=== PATIENT | male | born 1950 | race Caucasian/White ===

== ENCOUNTER 2018-02-08 10:11 | Outpatient (CLI) | payer MEDICARE | END 2018-02-08 10:12 | disposition home or self-care (01) | LOC: CTENTCT 10:11 | PROVIDERS: ATTEND Otolaryngology Plastic Surgery within the Head & Neck | DX: J32.8 Other chronic sinusitis (principal) | CPT/HCPCS: 70486 ==

== ENCOUNTER 2019-12-25 08:31 | Outpatient (CLI) | payer MEDICARE, OTHER ==
--- NOTE | 2019-12-25 09:51 | CT ---
EXAM: CT calcium score HISTORY: Hypercholesterolemia and hypertension COMPARISON: None TECHNIQUE: Multiple contiguous axial images were obtained a CT of the heart without contrast. FINDINGS: The CT images show no suspicious pulmonary nodules. Degenerative changes are seen in the s pine. No hilar or mediastinal lymphadenopathy are seen. The patient's total Agatston calcium score is 99. IMPRESSION: Mild coronary atherosclerosis is present. There is likely a mild or minimal coronary sten osis. A mild risk of having coronary artery disease exists
== END 2019-12-25 08:32 | disposition home or self-care (01) ==
LOC: BICCT 08:31
PROVIDERS: ATTEND Family Medicine
DX: I10 Essential (primary) hypertension (principal); I25.10 Atherosclerotic heart disease of native coronary artery without angina pectoris
CPT/HCPCS: 75571

== ENCOUNTER 2019-12-27 13:33 | Outpatient (CLI) | payer MEDICARE | END 2019-12-27 13:34 | disposition home or self-care (01) | LOC: ULT 13:33 | PROVIDERS: ATTEND Family Medicine | DX: I10 Essential (primary) hypertension (principal); I35.1 Nonrheumatic aortic (valve) insufficiency | CPT/HCPCS: 93306 ==

== ENCOUNTER 2020-01-16 07:44 | Outpatient (CLI) | payer MEDICARE, OTHER ==
[2020-01-16 11:39] LABS: #Basophils 0.1 thou/uL (0.0-0.2); #Eosinphils 0.2 thou/uL (0.0-0.7); #Lymphocytes 2.2 thou/uL (1.20-3.40); #Monocytes 0.7 thou/uL (0.11-0.59); #Neutrophils 4.6 thou/uL (1.40-6.50); %Basophils 0.8 % (0.0-1.0); %Eosinophils 2.9 % (0.0-10.0); %Lymphocytes 28.2 % (21.0-51.0); %Monocytes 9.4 % (0.0-10.0); %Neutrophils 58.7 % (42.0-75.0); Hemoglobin 15.6 g/dL (14.0-18.0); Mean Corpuscular HGB CONC 35.2 g/dL (32.0-36.0); Mean Corpuscular Volume 96.5 fL (78.0-98.0); Mean Platelet Volume 6.9 fL (7.4-10.4); Platelet Count 203 thou/uL (130-400); RBC Distribution Width 11.5 % (11.5-14.5); Red Blood Cell (RBC) Count 4.59 mill/uL (4.70-6.10); White Blood Cell (WBC) Count 7.9 thou/uL (4.8-10.8)
[2020-01-16 11:54] LABS: Bacteria/HPF None Seen HPF (None Seen); Bilirubin Negative (Negative); Blood, Urine Negative (Negative); Clarity Clear (Clear); Glucose, Urine (Dipstick) Normal (Negative); Ketone, Urine Negative (Negative); Leukocyte Negative Leu/uL (Negative); Nitrite Negative (Negative); Protein, Urine (Dipstick) Negative (Neg-Trace); RBC/HPF 0-3 HPF (0-3); Squamous Epithelial 0-3 HPF (0-3); Urobilinogen Normal mg/dL (Less than 2); WBC/HPF 0-3 HPF (0-3)
--- NOTE | 2020-01-16 15:02 | EKG ---
Test Reason : PREOP Blood Pressure : / mmHG Vent. Rate : 067 BPM Atrial Rate : 067 BPM P-R Int : 144 ms QRS Dur : 092 ms QT Int : 404 ms P-R-T Axes : -02 032 068 degrees QTc Int : 426 ms Normal sinus rhythm Normal ECG No previous ECGs available Confirmed by JORGE ROMEO (2) on 01/16/2020 3:01:41 PM Referred By: CHET Confirmed By:JORGE ROMEO
[2020-01-16 17:26] LABS: SARS-CoV-2 MS2 Positive; SARS-CoV-2 N Gene Negative; SARS-CoV-2 S Gene Negative; SARS-CoV-2 by NAA Not Detected (NotDetected); SARS-CoV-2 orf1ab Negative
== END 2020-01-16 07:45 | disposition home or self-care (01) ==
LOC: LABBT 07:44
PROVIDERS: ATTEND Orthopaedic Surgery Hand Surgery
DX: Z01.818 Encounter for other preprocedural examination (principal); M19.041 Primary osteoarthritis, right hand; Z20.828 Contact with and (suspected) exposure to other viral communicable diseases
CPT/HCPCS: 81001; 85025; 93005; U0003; 87635; 93010

== ENCOUNTER 2020-01-19 07:34 | Day surgery (SDC) | payer MEDICARE ==
[2020-01-18 09:47] VITALS: BMI 30.8
[2020-01-19] MEDS ORDERED: Midazolam HCl 2 mg/2 ml Vial ONE (07:38)
[2020-01-19] MEDS ORDERED: Fentanyl 100 MCG/2 ML VIAL ONE ×2 (07:38→08:23)
[2020-01-19] MEDS ORDERED: Bacitracin Zinc Ointment 30 gm TUBE ONE (08:14)
[2020-01-19] MEDS ORDERED: Bupivacaine PF 0.5% 30 ML VIAL ONE (08:14)
[2020-01-19] MEDS ORDERED: Betamet Acet/Betamet Na Ph 30 MG/5 ML VIAL ONE (08:14)
[2020-01-19] MEDS ORDERED: Sodium Chloride 0.9% 10 ML ONE (08:14)
[2020-01-19] MEDS ORDERED: ePHEDrine 50 MG/ML VIAL ONE (09:40)
[2020-01-19] MEDS ORDERED: Lidocaine 1% PF 5 ML VIAL ONE (09:59)
[2020-01-19] MEDS ORDERED: Ondansetron PF 4 MG/2 ML Vial ONE (09:59)
[2020-01-19] MEDS ORDERED: PHENYLEPHRINE-NS 100 MCG/ML 10 ML SYRINGE ONE (09:59)
[2020-01-19] MEDS ORDERED: Bupivacaine HCl 0.5%/Epinephrine 1:200,000/PF 30 ml Vial ONE (09:59)
[2020-01-19] MEDS ORDERED: EPHEDRINE 25 MG/5 ML SYRINGE ONE (09:59)
[2020-01-19] MEDS ORDERED: PROPOFOL 200 MG/20 ML VIAL ONE (09:59)
[2020-01-19] MEDS ORDERED: Ketorolac Tromethamine 30 MG/ML VIAL ONE (09:59)
--- NOTE | 2020-01-19 16:57 | RAD ---
Right hand 2 views intraoperative fluoroscopy HISTORY: Orthopedic surgery. FINDINGS: Intraoperative fluoroscopy was provided for hardware placement and orthopedic surgery as pe rformed by Dr. Barber. Spot fluoroscopic images show metallic wire traversing the first metacarpophalangeal joint and first and second metacarpal bases. Trapezium appears absent. Fluoroscopy time 45 seconds.
--- NOTE | 2020-01-21 09:44 | OP ---
DATE OF PROCEDURE: 01/19/2020 PREOPERATIVE DIAGNOSIS: Right thumb carpometacarpal osteoarthritis with right thumb metacarpophalangeal joint capsular laxity with hyperextension deformity. POSTOPERATIVE DIAGNOSIS: Right thumb carpometacarpal osteoarthritis with right thumb metacarpophalangeal joint capsular laxity with hyperextension deformity with over 40 degrees hyperlaxity of the thumb MP joint. PROCEDURES PERFORMED: 1. Capsulodesis, thumb MP joint, right. 2. Ligament replacement tendon interposition arthroplasty, right thumb carpometacarpal joint. 3. Right thumb complete trapeziectomy with flexor carpi radialis tendon repair for the ligament replacement. 4. C-arm supervision. SPECIMEN REMOVED: Trapezium not sent to the lab. 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 DESCRIPTION OF PROCEDURE: After successful general endotracheal anesthesia, the limb was prepped and draped. The patient also had a block which was so effective. He was completely numb prior to even going back to the operating room. We then outlined a zigzag incision beginning ulnar, distal, and radial, proximal centered on the A1 becca down to the MP joint flexion crease, past the MP joint flexion crease, and then the standard carpometacarpal joint, J-lazy/hockey-stick incision to approach the CMC. We also outlined incision for the flexor carpi radialis harvest. We exsanguinated the limb, inflated the tourniquet to 250 mmHg pressure. The patient then had the incision over of the center A1 becca of the thumb developed first. We identified both the ulnar and radial digital nerves protected them. We made an incision over the A1 becca, retracted the extensor and flexor pollicis longus radially and then we had excellent view of the volar plate as distal and the joint capsule distal from proximal to the sesamoids. We then made a chevron shaped incision and using 4-0 Prolene sutures, advanced [id number] for capsular reconstruction/capsulodesis. Then flexed the digit at the MP joint 30 degrees, pinned it under C-arm supervision in this position and then performed the [id number] capsular repair. We then cut the sutures, and packed the wound with moist normal saline. The wire was cut with only 3 mm protruding from the joint. Then, we made the approach to the volar CMC joint. We carried through skin and subcutaneous tissue with a sharp knife blade and in the medial began dissecting internervous plane between the superficial radial nerve, terminal branches, and the terminal branches of the median cutaneous sensory. Once this was done, we then in between the multiple sleeves of the abductor pollicis longus and extensor pollicis brevis, I did perform a capsulorrhaphy in this patient with a thumb trapezium. The patient then had the joint capsule edges tagged and retracted until we completely the thumb trapezium radial side and now we identified very proximally moving the flexor carpi radialis tendon. Freed this up all along the edges of the palmar and ulnar trapezium. Once this was done, we released the scaphotrapezial joint capsule and remainder of the carpometacarpal joint. The flexor carpi radialis was spared, we placed a corkscrew from [employer] kit in the trapezium to help elevated and remove it. There was no trauma and is here we observed the changes in the scaphoid distal pole trapezium, chondral surface. We then saw over 85% chondral loss on both sides of the joint, removed all the osteophytes from both sides of the base of the thumb, metacarpal, and then I placed a heavy 3-0 Prolene deep in the volar ulnar capsule. We then rotated the thumb with the nail bed parallel to the palm, drilled a guidewire 12 mm from the proximal edge of the metacarpal base, oblique into the junction of the chondral and subchondral bone centered in the volar and dorsal plane. We then drilled this protecting the EPB and the superficial radial nerve branches with tissue protector with first a 2.7 then a 3.5 drill bit. We then used a curette and made this hole approximately 4 to 4-1/4 mm. At this point, we felt it was large enough for the tendon that we harvested the flexor carpi radialis tendon using the usual fashion with 2 incisions. We trimmed all excess muscle, obtained hemostasis at the top of the wound, and then had to remove approximately 125% of the width in order to pass through the tunnel. This was done. We then reduced the first and second metacarpal in appropriate height and abduction and pinned it x1 with a 0.045 K-wire. There was no motion whatsoever. We then set the tension of the flexor carpi radialis tendon passed the graft, passed it underneath the abductor pollicis longus, hold the tension here and then sutured it in tension x4, two radial and two ulnar to the abductor complex. Once this was done, we placed additional 4-0 Prolene to hold against the sidewall at the level of the now taut flexor carpi radialis entrance into the ulnar tunnel. We then used 2 Paul needle to create an anchovy affect to remainder portion of tendon, tied deep in the capsule, closed the capsule over it and released the tourniquet. We obtained hemostasis. We then closed the capsule completely with 2-0 Vicryl undyed, 2-0 Vicryl, restore the fascia back to the edge of the metacarpal, confirmed that the K-wire is X position and bent it, and then cut it with 2 mm protruding and bent. The subcutaneous closure was accomplished at all incisions with running 3-0 Monocryl undyed. Epidermis repaired with 4-0 nylon and the patient then left the operating room without evidence of anesthetic or operative complication in a bulky dressing with thumb spica splint. We also closed the incision at the capsulodesis site with just a simple 4-0 nylon interrupted simple pattern. Job ID: [id number]
== END 2020-01-19 13:53 | disposition home or self-care (01) ==
LOC: SDC 07:34
PROVIDERS: ATTEND Orthopaedic Surgery Hand Surgery
PROC: 0LU507Z Supplement Right Lower Arm and Wrist Tendon with Autologous Tissue Substitute, Open Approach (ICD-10-PCS; principal; 2020-01-19)
PROC: 0RRS07Z Replacement of Right Carpometacarpal Joint with Autologous Tissue Substitute, Open Approach (ICD-10-PCS; 2020-01-19)
PROC: 3E0T3BZ Introduction of Anesthetic Agent into Peripheral Nerves and Plexi, Percutaneous Approach (ICD-10-PCS; 2020-01-19)
DX: M18.11 Unilateral primary osteoarthritis of first carpometacarpal joint, right hand (principal); G89.18 Other acute postprocedural pain; I10 Essential (primary) hypertension; G47.30 Sleep apnea, unspecified; E78.5 Hyperlipidemia, unspecified; Z79.82 Long term (current) use of aspirin; Z79.899 Other long term (current) drug therapy
CPT/HCPCS: 25310; 25447; 64415; 73120; 76000; C1713; J0690; J0702; J1885; J2250; J2405; J2704; J3010; J3370; J3490; S0020

== ENCOUNTER 2020-05-03 06:19 | Day surgery (SDC) | payer MEDICARE ==
[2020-05-01 11:55] VITALS: BMI 30.5
[2020-05-03] MEDS ORDERED: Midazolam HCl 2 mg/2 ml Vial ONE ×2 (08:05→08:35)
[2020-05-03] MEDS ORDERED: Fentanyl 100 MCG/2 ML VIAL ONE ×2 (08:05→08:35)
[2020-05-03] MEDS ORDERED: Bupivacaine PF 0.5% 30 ML VIAL ONE (08:32)
[2020-05-03] MEDS ORDERED: Sodium Chloride 0.9% 10 ML ONE (08:32)
[2020-05-03] MEDS ORDERED: Bacitracin Zinc Ointment 30 gm TUBE ONE (08:32)
[2020-05-03] MEDS ORDERED: ePHEDrine 50 MG/ML VIAL ONE (11:18)
[2020-05-03] MEDS ORDERED: Ondansetron PF 4 MG/2 ML Vial ONE (11:18)
[2020-05-03] MEDS ORDERED: Lidocaine 1% PF 5 ML VIAL ONE (11:18)
[2020-05-03] MEDS ORDERED: PROPOFOL 200 MG/20 ML VIAL ONE (11:18)
[2020-05-03] MEDS ORDERED: Dexamethasone 20 MG/5 ML VIAL ONE (11:18)
[2020-05-03] MEDS ORDERED: PHENYLEPHRINE-NS 100 MCG/ML 10 ML SYRINGE ONE (11:18)
[2020-05-03] MEDS ORDERED: Ropivacaine 2% HCl/PF (20 MG/10 ML VIAL) ONE (11:23)
[2020-05-03] MEDS ORDERED: Bupivacaine HCl 0.5%/Epinephrine 1:200,000/PF 30 ml Vial ONE (11:23)
--- NOTE | 2020-05-04 09:40 | RAD ---
EXAM: XR Finger(s) Rt Min 2 View DATE: 05/03/2020 10:00 AM INDICATION: Right thumb capsulodesis COMPARISON: Prior right hand radiograph dated 01/19/2020 FINDING: Submitted image demonstrates surgical clips in the center at the thumb MCP joint. There are suture anchors present within the thumb metacarpal head and thumb proximal phalangeal base. Subsequent images demonstrates smooth Maximo wire placement across the MCP joint. The final submit tiffany images demonstrate persistent of the wire fixation. There is postsurgical change of a prior first CMC arthroplasty. IMPRESSION:Intraoperative C-arm images for the thumb MCP capsule release and repair
--- NOTE | 2020-05-05 10:45 | OP ---
DATE OF PROCEDURE: 05/03/2020 PREOPERATIVE DIAGNOSIS: Right thumb MP joint hyperextension with lax palmar/right dorsal capsular subluxation. POSTOPERATIVE DIAGNOSIS: Right thumb MP joint hyperextension with lax palmar/right dorsal capsular subluxation. PROCEDURE PERFORMED: 1. Dorsal arthrotomy, right thumb metacarpophalangeal joint with capsulectomy. 2. Volar plate advancement with anchors and capsule reconstruction palmar. 3. One-half abductor pollicis brevis transfer to base of thumb proximal phalanx radial aspect. 4. C-arm supervision. 5. Neuroplasty of digital nerves. INDICATIONS: Patient with stable CMC after arthroplasty, but with hyperextension deformity of approximately 35 degrees that could be reduced, but not maintained. No evidence radiographically and clinically of osteoarthritis at the joint. DESCRIPTION OF PROCEDURE: After successful supraclavicular block, the patient then had the limb prepped and draped. Time-out was done appropriately and the site, side, and procedure matched in both the chart and on the table. We then outlined a dorsal incision for approximately 2 cm and incision 1 cm distal proximal to his previous Shaheen incision over the palmar MP joint. We initially approached the palmar MP joint and there was very thick subcutaneous scar, so we had to perform a formal digital nerve neuroplasty to evaluate, see, and protect the neurovascular bundle, which we were able to do throughout the procedure. Once we had done this, we removed the dense scar over the flexor tendon where the A1 becca had completely grown back as a scar. We released this and moved the digital nerve radially and the flexor pollicis longus ulnarly. Here, we saw a suture which we removed, de-lax and stretched this proximal 3 mm of the previous repair, was excised and then we created a rectangular flap all way back to a 0.3 mm proximal to the joint and this was stable to retraction, but we could only pull the joint approximately -10 degrees extension, so we realized the capsulotomy would be needed. We made the zigzag incision over the dorsal radial capsule, dissected down, lifted up the extensor mechanism tendon partially and then we were able to do a complete capsulotomy and then performed a 2 mm capsulectomy from radial to ulnar. The extensor tendon was intact. We then closed the retinaculum with a small 2-0 suture after we proved our C-arm that we could reduce the joint and flex it easily to 40 degrees. We then began the dissection of the palmar and radial one-half of the abductor pollicis brevis and then dissected it and moved it deep to the neurovascular bundle radial aspect and then found a spot where it would match the radial tubercle at the base of the proximal phalanx radial aspect. Once we had done this, we placed anchors at that radial tubercle proximal phalanx base area, that was a Micro Mitek anchor, and we placed 2 mini Mitek anchors each 5 mm apart; one at the base of the capsule reflection and one at the point we wanted to advance the base of the capsule reflection. We then placed the sutures in appropriate position, but did not tie them, we reduced the joint and then with a 35- to 40-degree flexion, passed 2 K-wires to hold the joint in place. We then turned back to the palmar wound, closed all sutures that were in place, which were anchors. We used a 4-0 Prolene in a [id number] to repair the area between the anchors and to also suture the palmar capsule into the abductor pollicis brevis graft. Once this was done, we released the tourniquet, obtained hemostasis. We closed the wound with interrupted 4-0 nylon dorsally and palmarly and there was no simple stitch and the patient left the operating room without evidence of anesthetic or operative complication. Job ID: [id number]
== END 2020-05-03 13:40 | disposition home or self-care (01) ==
LOC: SDC 06:19
PROVIDERS: ATTEND Orthopaedic Surgery Hand Surgery
PROC: 0RNU0ZZ Release Right Metacarpophalangeal Joint, Open Approach (ICD-10-PCS; principal; 2020-05-03)
PROC: 0LX70ZZ Transfer Right Hand Tendon, Open Approach (ICD-10-PCS; 2020-05-03)
DX: M24.841 Other specific joint derangements of right hand, not elsewhere classified (principal); M18.0 Bilateral primary osteoarthritis of first carpometacarpal joints; I10 Essential (primary) hypertension; E78.00 Pure hypercholesterolemia, unspecified; M19.90 Unspecified osteoarthritis, unspecified site; Z79.82 Long term (current) use of aspirin; Z79.899 Other long term (current) drug therapy
CPT/HCPCS: 26480; 26520; 73140; 76000; C1713; J0690; J1100; J2250; J2405; J2704; J2795; J3010; J3490; S0020

== ENCOUNTER 2021-08-28 11:26 | Outpatient (CLI) | payer MEDICARE | END 2021-08-28 11:27 | disposition home or self-care (01) | LOC: CTENTCT 11:26 | PROVIDERS: ATTEND Otolaryngology Plastic Surgery within the Head & Neck | DX: J32.8 Other chronic sinusitis (principal) | CPT/HCPCS: 70486 ==